=== PATIENT | female | born 1995 | race Caucasian/White ===

== ENCOUNTER → 2021-06-28 09:19 | Outpatient (CLI) | payer OTHER, SELFPAY ==
--- NOTE | 2021-06-28 | DI.US.S_ITS ---
PROCEDURE: US OB >= 14 WEEKS FETUS INDICATIONS: 20 WEEK ANATOMY OUTSIDE/PRIOR DATING DATA: Last menstrual period (LMP): January 29, 2021. LMP-based estimated date of delivery (ASHA): November 05, 2021. First dating scan (date and location): June 28, 2021. Estimated date of delivery (ASHA) from first dating scan: October 29, 2021. TECHNIQUE: Real-time scanning was performed of the fetus, with image documentation and biometric measurements. Endovaginal scanning: Performed COMPARISON: None. FINDINGS: General: A single living intrauterine gestation is present. Presentation: Transverse head left. Placenta: Placental position is posterior, without previa. Amniotic fluid index: 18.6 cm, normal range is 5-24 cm. heart rate: 140 beats per minute. Maternal cervical canal: Closed and 4.5 cm long. Normal lower limit is 2.5 cm. biometrics: Biparietal diameter: 22 weeks 1 day Head circumference: 22 weeks 2 days Abdominal circumference: 22 weeks 6 days Femur length: 22 weeks 1 day Estimated gestational age from initial scan: not applicable. Composite gestational age from present scan: 22 weeks 3 days Estimated weight and percentile: 514 grams; 93rd percentile. Measurement variability for biometric dating: +/- 7 days from 14 weeks to 15 weeks 6 days gestation, +/- 10 days from 16 weeks to 21 weeks 6 days gestation, +/- 2 weeks from 22 weeks to 27 weeks 6 days gestation, +/- 3 weeks for 28 weeks gestation or later. weight reference: 4500 g or EFW >90/95% is considered macrosomia or large for gestational age. EFW <10% is small for gestational age. EFW 5% or less is considered intra-uterine growth restriction. Anatomic survey: Neuro: Ventricles are non-dilated at less than 10 mm. Cisterna magna is normal at 3-11 mm. Cerebellum is normal in size and morphology. Nuchal skin fold: Normal at less than 6 mm between 14-21 weeks gestational age. Face: Nose and lips, facial profile are normal. Spine: No evidence for spina bifida. Heart: 4-chambered heart is present, with normal ventricular outflow tracts. Diaphragm: Diaphragm is intact. Stomach: Left-sided stomach is present. Kidneys: No hydronephrosis. Normal is less than 5 mm in 2nd trimester, less than 7 mm in 3rd trimester. Cord: 3-vessel cord has orthotopic insertion. Bladder: Normal in size. Extremities: All 4 extremities identified. IMPRESSION: 1. Single living intrauterine with ultrasound estimated gestational age of 22 weeks 3 days corresponding to ultrasound ASHA of October 29, 2021. 2. Estimated weight 514 grams corresponding to the 93rd percentile for gestational age. Dictated by: Richelle Barcenas MD, PhD on 06/28/2021 at 12:20 Approved by: Richelle Barcenas MD, PhD on 06/28/2021 at 12:22
== END ==
PROVIDERS: PCP Registered Nurse; Referring Provider Registered Nurse; Visit Provider Registered Nurse
DX: Z36.89 Encounter for other specified antenatal screening (principal); Z3A.22 22 weeks gestation of pregnancy
CPT/HCPCS: 76811